=== PATIENT | male | born 1985 | race Caucasian/White ===

== ENCOUNTER 2017-11-22 05:35 | Day surgery (SDC) | payer BC ==
[~2017-11-22] VITALS: Ht 170.2 cm; Wt 77.1 kg
[2017-11-22 06:51] VITALS: BP 119/82
[2017-11-22] MEDS ORDERED: NORCO 5/3251 TABLET PO (08:32)
[2017-11-22 09:55] VITALS: BP 120/71
[2017-11-22 10:55] VITALS: BP 135/82
== END 2017-11-22 11:25 | disposition home or self-care (01) ==
LOC: SDC 05:35
PROC: 0YU60JZ Supplement Left Inguinal Region with Synthetic Substitute, Open Approach (ICD-10-PCS; principal; 2017-11-22)
DX: K40.90 Unilateral inguinal hernia, without obstruction or gangrene, not specified as recurrent (principal); Z80.0 Family history of malignant neoplasm of digestive organs
CPT/HCPCS: C1781; J0690; J1100; J1885; J2250; J2405; J3010